=== PATIENT | female | born 1945 | race Caucasian/White ===

== ENCOUNTER → 2016-11-03 | Outpatient (CLI) | payer MEDICARE, OTHER ==
[2016-11-03 12:20] VITALS: BP 120/86
== END ==
LOC: MHUC 11:24
PROVIDERS: ATTEND Physician Assistant
DX: H44.002 Unspecified purulent endophthalmitis, left eye (principal)
CPT/HCPCS: 99213

== ENCOUNTER → 2016-11-24 | Outpatient (REF) | payer MEDICARE, OTHER ==
[~2016-11-24] MED LIST: CEPH-507 PO; PLTR10OP OS
[2016-11-24 18:41] LABS: HEPATITIS A ANTIBODY IGM Negative; HEPATITIS B CORE ABY IGM Negative; HEPATITIS B SURFACE ANTIGEN C Negative
== END ==
LOC: LAB 11:42
PROVIDERS: ATTEND Physician Assistant Surgical
DX: E11.9 Type 2 diabetes mellitus without complications (principal); Z86.19 Personal history of other infectious and parasitic diseases; Z11.59 Encounter for screening for other viral diseases
CPT/HCPCS: 80074; 83036

== ENCOUNTER → 2017-01-10 | Outpatient (CLI) | payer MEDICARE, OTHER ==
[~2017-01-10] MED LIST changes: +VALA10004 PO
[2017-01-10 20:37] VITALS: BP 136/88
--- NOTE | 2017-01-10 20:37 | Urgent Care T Sheet Gen (E) ---
Intake General Temperature (Fahrenheit): 97.9 Pulse: 80 Blood Pressure Systolic: 136 Blood Pressure Diastolic: 88 Respirations: 18 SPO2: 96 Chief Complaint: rash on left side of face Source: Patient History of Present Illness Initial Comments Pt notes that this morning she woke with left ear pain and pain and rash on left forehead and cheek. She noted rash down around her left upper lip. She has noticed as the day has gone on her left eye has become red and she notes it feels sore at the lateral canthus. No visual changes. No photophobia. Home Meds Active Scripts Polymyxin/Trimethoprim (Polytrim Ophthalmic Solution)10 Ml Soln1 Drop OS QID #1 BTL 1 drop QID in L eye x 7 days Prov:GARY BOWMAN PA 11/03/16 Cephalexin (Keflex)500 Mg [id number] Mg PO QID Infection #28 CAP Ref 0 Prov:SELZER,GARY D PA 11/03/16 Cephalexin (Keflex)500 Mg [id number] Mg PO TID Infection #21 CAP Ref 0 Prov:GARY BOWMAN PA 03/21/16 Respiratory Constitutional Symptoms: No syptoms reported EENTM: No No symptoms reported, See HPINo Eye pain, No Blurred vision, No Eye tearing, No Double Vision, Ear pain (left)No Ear discharge, No Nose Pain, No Nose Congestion, No Throat pain, No Throat swelling, No Mouth Pain, No Mouth Swelling, No Other Respiratory: No symptoms reported Cardiovascular: No symptoms reported Skin: See HPI Neurological: No symptoms reported All Other Systems Reviewed Remaining Systems: All other systems reviewed with negative findings Past [id number]-[id number] Hx Patient's Social History Alcohol Use: Denies Use Smoking Status: Never smoker Physical Exam Physical Exam General Appearance: WD/WN No apparent distress Eyes, Ears, Nose, Throat Ex: PERRL/EOMI TMs normal Pharynx normal Other (left conjunctiva is injected.) Neck Exam: Non tender Full range of motion Normal inspection Normal thyroid Respiratory Exam: Lungs clear Normal breath sounds Cardiovascular Exam: Regular rate, rhythm No edema GI/ Exam: Non tender Normal bowel sounds No distention Skin Exam: Other (On exam of her face: left forehead and left cheek have very faint macular erythematous areas- hypersensitive to touch. No lesions noted on tip of nose or ear. She does have erythemaous vesicular lesion on left upper [place] border of lip. More localized erythematous area at left lateral canthus of the eye.) Procedures/Interventions Eye Procedure : Location: Left eye Progress/Procedure Conclusion Fluorescein stain was performed on left eye- No dendritic lesions/pattern noted. No signs of corneal abrasion. No foreign body noted. Pt tolerated the procedure well. Departure Urgent Care Impression Chief Complaint: rash on left side of face Impression: Primary Impression: Shingles Qualified Code: B02.9 - Zoster without complications Departure Disposition: 01 HOME OR SELF-CARE Departed Disposition: To [facility] ED Condition: Stable Referrals: OSWALD BURROWS MD (PCP) Additional Instructions: Take Valtrex as prescribed below. Follow-up with Dr. Burrows tomorrow- I spoke with Dr. Burrows and pt is to contact his office tomorrow. Return to the ER or UC if symptoms get worse or further concerns. Discharge instructions verbally given to Patient. Patient verbalize understanding of discharge instructions. Scripts Valacyclovir HCl (Valtrex)1,000 Mg Tablet1,000 Mg PO TID #21 TAB Prov:SHALONDA BERGER 01/10/17 End of report . SHALONDA BERGER January 10, 2017 20:37
== END ==
LOC: MHUC 19:56
PROVIDERS: ATTEND Physician Assistant
DX: B02.9 Zoster without complications (principal)
CPT/HCPCS: 99213